=== PATIENT | male | born 1990 | race Two or more races ===

== ENCOUNTER 2017-10-12 19:43 | Inpatient (IN) | payer OTHER ==
[2017-10-12 20:14] VITALS: BMI 23.2
--- NOTE | 2017-10-13 00:47 | HP ---
CIWA Score - CIWA Score Nausea/Vomitin Muscle Tremors: 1-None Visible, but [place] Anxiety: 5 Agitation: 5 Paroxysmal Sweats: 3 Orientation: 0-Oriented Tacttile Disturbances: 0-None Auditory Disturbances: 0-None Visual Disturbances: 2-Mild Sensitivity Headache: 0-None Present CIWA-Ar Total Score: 19 Admission ROS S - HPI Chief Complaint: C/O WITHDRAWAL SX'S. SEEKING DETOX FROM ALCOHOL Allergies/Adverse Reactions: Allergies Allergy/AdvReac Type Severity Reaction Status Date / Time Penicillins Allergy Intermediate Hives Verified 10/12/17 23:45 History of Present Illness: 27 Y.O. MALE WITH ALCOHOLISM HERE FOR DETOX. CLIENT LAST HERE FROM 04/23/2015-. HE DENIES DETOX SINCE. SELF REFERRED AFTER HIS FAMILY KICKED HIM OUT UNTIL HE SEEK TXMENT. REPORTS LONGEST CLEAN TIME 1 YEARS. RELPASING 1 YEAR AGO. DENIES SEIZURE D/O C.P, AVH, PAST/PRESENT SI/HI. REPORTS HX/O BLACK OUTS AND SOB DUE TO NICOTINE DEP. PMHX: DENIES PSYCH: DEPRESSION Exam Limitations: No Limitations - Ebola screening Have you traveled outside of the country in the last 21 days: No Have you had contact with anyone from an Ebola affected area: No Have you been sick,other than usual withdrawal symptoms: No Do you have a fever: No - Review of Systems Constitutional: Loss of Appetite, Malaise, Changes in sleep, Unintentional Wgt. Loss EENT: reports: No Symptoms Reported Respiratory: reports: No Symptoms reported Cardiac: reports: No Symptoms Reported GI: reports: Poor Appetite, Poor Fluid Intake, Abdominal cramping : reports: No Symptoms Reported Musculoskeletal: reports: Back Pain Integumentary: reports: Rash ( R LEG X 2WEEKS) Neuro: reports: No Symptoms reported Endocrine: reports: No Symptoms Reported Hematology: reports: No Symptoms Reported Psychiatric: reports: Agitated, Depressed Other Systems: Reviewed and Negative Patient History - Patient Medical History Hx Anemia: No Hx Asthma: No Hx Chronic Obstructive Pulmonary Disease (COPD): No Hx Cancer: No Hx Cardiac Disorders: No Hx Congestive Heart Failure: No Hx Hypertension: No Hx Hypercholesterolemia: No Hx Pacemaker: No HX Cerebrovascular Accident: No Hx Seizures: No Hx Dementia: No Hx Diabetes: No Hx Gastrointestinal Disorders: No Hx Liver Disease: No Hx Genitourinary Disorders: No Hx Sexually Transmitted Disorders: No Hx Renal Disease (ESRD): No Hx Thyroid Disease: No Hx Human Immunodeficiency Virus (HIV): No Hx Hepatitis C: No Hx Depression: Yes Hx Suicide Attempt: No Hx Bipolar Disorder: No Hx Schizophrenia: No - Patient Surgical History Past Surgical History: No Hx Neurologic Surgery: No Hx Cataract Extraction: No Hx Cardiac Surgery: No Hx Lung Surgery: No Hx Breast Surgery: No Hx Breast Biopsy: No Hx Abdominal Surgery: No Hx Appendectomy: No Hx Cholecystectomy: No Hx Genitourinary Surgery: No Hx Orthopedic Surgery: No Anesthesia Reaction: No - PPD History Previous Implant?: Yes Documented Results: Positive w/o proof PPD to be Administered?: No - Smoking Cessation Smoking history: Current every day smoker Have you smoked in the past 12 months: Yes Aproximately how many cigarettes per day: 20 Cigars Per Day: 0 Hx Chewing Tobacco Use: No Initiated information on smoking cessation: Yes 'Breaking Loose' booklet given: 10/13/17 - Substance & Tx. History Hx Alcohol Use: Yes Hx Substance Use: Yes Substance Use Type: Alcohol, Marijuana Hx Substance Use Treatment: Yes ([facility]) - Substances Abused Alcohol Route: Oral Frequency: Daily Amount used: Beer 40 oz, Vodka 1/2 pint Age of first use: 15 Date of Last Use: 10/12/17 Marijuana/Hashish Route: Smoking Frequency: Daily Amount used: $20 Age of first use: 15 Date of Last Use: 10/12/17 Family Disease History - Family Disease History Family History: Denies Admission Physical Exam S - Vital Signs Vital Signs: Vital Signs - 24 hr 10/12/17 20:13 Temperature 99.2 F Pulse Rate 75 Respiratory 20 Rate Blood Pressure 140/83 - Physical General Appearance: Yes: Appropriately Dressed, Mild Distress, Thin, Irritable, Sweating, Other (MALODUROUS) HEENTM: Yes: EOMI, Normocephalic, Normal Voice, VAL[place], Pharynx Normal Respiratory: Yes: Chest Non-Tender, Lungs Clear, Normal Breath Sounds, No Respiratory Distress, No Accessory Muscle Use Neck: Yes: No masses,lesions,Nodules, Supple, Trachea in good position Breast: Yes: Breast Exam Deferred Cardiology: Yes: Regular Rhythm, Regular Rate, S1, S2 Abdominal: Yes: Normal Bowel Sounds, Non Tender, Soft Genitourinary: Yes: Other (NO C/O) Back: Yes: Normal Inspection Musculoskeletal: Yes: full range of Motion, Gait Steady, Back pain (C/O) Extremities: Yes: Normal Capillary Refill, Normal Range of Motion, Non-Tender, Tremors (SLIGHTLY FELT) Neurological: Yes: certified prosthetist/orthotist II-XII NML intact, Fully Oriented, Alert, Depressed Affect Integumentary: Yes: Dry, Warm, Rash (RIGHT POSTERIOT THIGH DERMATITS) Lymphatic: Yes: Within Normal Limits - Diagnostic (1) History of positive PPD Current Visit: Yes Status: Chronic (2) At risk for dehydration due to poor fluid intake Current Visit: Yes Status: Acute (3) Substance-induced sleep disorder Current Visit: Yes Status: Chronic (4) Alcohol-induced mood disorder Current Visit: Yes Status: Chronic (5) Alcohol dependence with uncomplicated withdrawal Current Visit: Yes Status: Acute (6) Cannabis dependence Current Visit: Yes Status: Chronic (7) Depression Current Visit: Yes Status: Chronic Qualifiers: Major depression episode severity: unspecified (8) Nicotine dependence Current Visit: Yes Status: Chronic Qualifiers: Nicotine product type: cigarettes Substance use status: uncomplicated Qualified Code(s): F17.210 - Nicotine dependence, cigarettes, uncomplicated Cleared for Admission [facility] - Detox or Rehab [facility] Level of Care: Medically Managed Detox Regimen/Protocol: Librium Claeared for Rehab Admission: No S Breath Alcohol Content Breath Alcohol Content: 0.100 Urine Drug Screen - Results Drug Screen Negative: No Urine Drug Screen Results: THC-Marijuana
[2017-10-13] MEDS ORDERED: P-EPHED 60MG/TRIPROLIDI 2.5MG TABLET PO PRN (01:00)
[2017-10-13] MEDS ORDERED: MAGNESIUM HYDROX 2400MG/30ML ORAL SUSPENSION 30 ML CUP PO PRN (01:00)
[2017-10-13] MEDS ORDERED: ACETAMINOPHEN 325 MG TABLET (FP) PO PRN (01:00)
[2017-10-13] MEDS ORDERED: MAG HYDROX/AL HYDROX/SIMETH 30 ML UNIT-DOSE CUP PO PRN (01:00)
[2017-10-13] MEDS ORDERED: guaiFENesin/D-METHORPHAN HB 10 ML UNIT-DOSE CUPS PO PRN (01:00)
[2017-10-13] MEDS ORDERED: NICOTINE POLACRILEX 2 MG GUM BUC PRN (01:00)
[2017-10-13] MEDS ORDERED: LOPERAMIDE HCL 2 MG CAPSULE PO PRN (01:00)
[2017-10-13] MEDS ORDERED: MENTHOL/PHENOL 1 EACH UD MM PRN (01:00)
[2017-10-13] MEDS ORDERED: MAGNESIUM CITRATE 300 ML BOTTLE PO PRN (01:00)
[2017-10-13] MEDS ORDERED: IBUPROFEN 400 MG TABLET (FP) PO PRN (01:00)
[2017-10-13] MEDS: chlordiazePOXIDE HCL 25 MG CAPSULE PO PRN (02:40)
[2017-10-13] MEDS: hydrOXYzine PAMOATE 50 MG CAPSULE (FP) PO PRN (02:41)
[2017-10-13] MEDS: chlordiazePOXIDE HCL 25 MG CAPSULE PO SCH ×4 (06:05→22:44)
[2017-10-13] MEDS: PRENATAL VITAMINS W/ FOLIC ACID TABLET (FP) PO SCH (10:21)
[2017-10-13] MEDS: NICOTINE 21 MG/24 HOURS TOPICAL PATCH TD SCH (10:22)
--- NOTE | 2017-10-13 12:33 | EKG ---
Test Reason : Blood Pressure : / mmHG Vent. Rate : 073 BPM Atrial Rate : 073 BPM P-R Int : 136 ms QRS Dur : 104 ms QT Int : 404 ms P-R-T Axes : 040 062 038 degrees QTc Int : 445 ms NORMAL SINUS RHYTHM RSR' OR QR PATTERN IN V1 SUGGESTS RIGHT VENTRICULAR CONDUCTION DELAY VOLTAGE CRITERIA FOR LEFT VENTRICULAR HYPERTROPHY ABNORMAL ECG NO PREVIOUS ECGS AVAILABLE Confirmed by JILLIAN BARRETO, YOAN ([id number]) on 10/13/2017 12:32:36 PM Referred By: Confirmed By:YOAN WALSH MD
--- NOTE | 2017-10-13 13:27 | PN ---
S CIWA - CIWA Score Nausea/Vomitin-No Nausea/No Vomiting Muscle Tremors: 4-Moderate,w/Arms Extend Anxiety: 4-Mod. Anxious/Guarded Agitation: 4-Moderately Restless Paroxysmal Sweats: 1-Minimal Palms Moist Orientation: 0-Oriented Tacttile Disturbances: 0-None Auditory Disturbances: 0-None Visual Disturbances: 0-None Headache: 0-None Present CIWA-Ar Total Score: 13 B[facility] Progress Note (SOAP) Subjective: ANXIETY,SWEATS,FATIGUE. Objective: 10/13/17 13:25 Vital Signs 10/13/17 10/13/17 06:26 09:12 Temperature 97.0 F L 97.5 F L Pulse Rate 76 61 Respiratory 18 18 Rate Blood Pressure 110/61 125/65 LABS PENDING Assessment: 10/13/17 13:25 WITHDRAWAL SX Plan: CONTINUE DETOX
--- NOTE | 2017-10-13 14:37 | CONSULT ---
[facility] Psychiatric Consult - Data Date of interview: 10/13/17 Admission source: [facility] Identifying data: Readmission to [facility] for this 27 y/o male from [place] ancestry, self-referred for detoxification treatment on ( alcohol + cannabis dependence).additional self-report of occasional use of ecstasy and cocaine.Patient is single without dependents,homeless,unemployed and supported on food stamps. Substance Abuse History: Confirmed by the patient in this interview.Details in current [facility] report : Smoking history: Current every day smoker. Have you smoked in the past 12 months: Yes. Aproximately how many cigarettes per day: 20. Cigars Per Day: 0. Hx Chewing Tobacco Use: No. Initiated information on smoking cessation: Yes. 'Breaking Loose' booklet given: 10/13/17. - Substance & Tx. History. Hx Alcohol Use: Yes. Hx Substance Use: Yes. Substance Use Type : Alcohol, Marijuana. Hx Substance Use Treatment: Yes ([facility]). - Substances Abused. Alcohol. Route: Oral. Frequency: Daily. Amount used: Beer 40 oz, Vodka 1/2 pint. Age of first use: 15. Date of Last Use: 10/12/17. Marijuana/Hashish. Route: Smoking. Frequency: Daily. Amount used: $20. Age of first use: 15. Date of Last Use: 10/12/17 Medical History: Patient endorses good general health. Psychiatric History: Patient denies history of psychiatric hospitalizations.Brief treatment with remeron in 2015 to address depression and insomnia.Duration : less than six months.No OPD care since 2014.Mr Alvares denies history of suicide attempts. Physical/Sexual Abuse/Trauma History: Patient denies. Additional Comment: Urine Drug Screen Results: THC-Marijuana.Noted. Mental Status Exam - Mental Status Exam Alert and Oriented to: Time, Place, Person Cognitive Function: Good Patient Appearance: Well Groomed Mood: Hopeful, Euthymic Affect: Appropriate, Normal Range Patient Behavior: Fatigued, Appropriate, Cooperative Speech Pattern: Clear Voice Loudness: Normal Thought Process: Intact, Goal Oriented Thought Disorder: Not Present Hallucinations: Denies Suicidal Ideation: Denies Homicidal Ideation: Denies Insight/Judgement: Poor Sleep: Well Appetite: Good Muscle strength/Tone: Normal Gait/Station: Normal Psychiatric Findings - Problem List ([place] 1, 2,3) (1) Alcohol dependence with uncomplicated withdrawal Current Visit: Yes Status: Acute (2) Cannabis dependence Current Visit: Yes Status: Acute (3) Nicotine dependence Current Visit: Yes Status: Chronic Qualifiers: Nicotine product type: cigarettes Substance use status: uncomplicated Qualified Code(s): F17.210 - Nicotine dependence, cigarettes, uncomplicated - Initial Treatment Plan Initial Treatment Plan: Psychoeducation.Sleep hygiene.Detoxification.Observation.
[2017-10-13] MEDS: THIAMINE HCL 100 MG TABLET (FP) PO SCH (22:44)
[2017-10-14] MEDS: chlordiazePOXIDE HCL 25 MG CAPSULE PO SCH ×4 (06:27→22:33)
[2017-10-14] MEDS: NICOTINE 21 MG/24 HOURS TOPICAL PATCH TD SCH (10:50)
[2017-10-14] MEDS: PRENATAL VITAMINS W/ FOLIC ACID TABLET (FP) PO SCH (10:50)
[2017-10-14 10:52] LABS: ALBUMIN 3.2 g/dl (3.4-5.0); ANION GAP 7 MMOL/L (8-16); BLOOD UREA NITROGEN 9 mg/dL (7-18); CALCIUM 8.9 mg/dL (8.5-10.1); CHLORIDE 104 mmol/L (98-107); CO2 30 mmol/L (21-32); GLUCOSE,RANDOM 85 mg/dL (74-106); POTASSIUM 4.2 mmol/L (3.5-5.1); SGOT/AST 19 U/L (15-37); SGPT/ALT 22 U/L (12-78); SODIUM 141 mmol/L (136-145)
[2017-10-14 10:53] LABS: ALK PHOS 94 U/L (45-117); BILIRUBIN,TOTAL 0.7 mg/dL (0.2-1.0); CREATININE 0.8 mg/dL (0.7-1.3); TOT PROT 6.2 g/dl (6.4-8.2)
[2017-10-14 11:42] LABS: HEMATOCRIT 44.9 % (35.4-49); MCH 31.6 pg (25.7-33.7); MCHC 33.4 g/dl (32.0-35.9); MEAN CELL VOLUME 94.8 fl (80-96); MEAN PLT VOLUME 8.7 fl (7.5-11.1); PLATELET COUNT 244 K/MM3 (134-434); RBC 4.74 M/mm3 (4.00-5.60); RDW 13.8 % (11.9-15.9); WHITE BLOOD COUNT 3.9 K/mm3 (4.0-10.0)
--- NOTE | 2017-10-14 13:48 | EKG ---
Test Reason : Blood Pressure : / mmHG Vent. Rate : 053 BPM Atrial Rate : 053 BPM P-R Int : 152 ms QRS Dur : 102 ms QT Int : 432 ms P-R-T Axes : 050 058 037 degrees QTc Int : 405 ms SINUS BRADYCARDIA WITH SINUS ARRHYTHMIA VOLTAGE CRITERIA FOR LEFT VENTRICULAR HYPERTROPHY ABNORMAL ECG WHEN COMPARED WITH ECG OF 13-OCT-2017 02:12, NO SIGNIFICANT CHANGE WAS FOUND Confirmed by LILA BARRETO, DOMINIQUE ([id number]) on 10/14/2017 1:48:06 PM Referred By: Confirmed By:DOMINIQUE SHARP MD
[2017-10-14] MEDS: chlordiazePOXIDE HCL 25 MG CAPSULE PO PRN (14:10)
--- NOTE | 2017-10-14 14:16 | PN ---
S CIWA - CIWA Score Nausea/Vomitin-No Nausea/No Vomiting Muscle Tremors: 4-Moderate,w/Arms Extend Anxiety: 4-Mod. Anxious/Guarded Agitation: 4-Moderately Restless Paroxysmal Sweats: 1-Minimal Palms Moist Orientation: 0-Oriented Tacttile Disturbances: 0-None Auditory Disturbances: 0-None Visual Disturbances: 0-None Headache: 0-None Present CIWA-Ar Total Score: 13 BHS Progress Note (SOAP) Subjective: ANXIETY,SWEATS,FATIGUE. Objective: 10/14/17 14:15 Vital Signs 10/14/17 10/14/17 06:30 10:46 Temperature 96.9 F L 98.0 F Pulse Rate 48 L 68 Respiratory 18 18 Rate Blood Pressure 125/74 119/64 Laboratory Tests 10/14/17 10/14/17 06:00 06:00 WBC 3.9 L RBC 4.74 Hgb 15.0 Hct 44.9 MCV 94.8 MCH 31.6 MCHC 33.4 RDW 13.8 Plt Count 244 MPV 8.7 Sodium 141 Potassium 4.2 Chloride 104 Carbon Dioxide 30 D Anion Gap 7 L BUN 9 Creatinine 0.8 Creat Clearance w eGFR > 60 Random Glucose 85 Calcium 8.9 Total Bilirubin 0.7 AST 19 D ALT 22 Alkaline Phosphatase 94 Total Protein 6.2 L Albumin 3.2 L Assessment: 10/14/17 14:16 WITHDRAWAL SX Plan: CONTINUE DETOX
[2017-10-14] MEDS: MELATONIN 5 MG TABLETS PO PRN (22:33)
[2017-10-14] MEDS: THIAMINE HCL 100 MG TABLET (FP) PO SCH (22:33)
[2017-10-15] MEDS: hydrOXYzine PAMOATE 50 MG CAPSULE (FP) PO PRN (00:25)
[2017-10-15] MEDS: chlordiazePOXIDE 5 MG CAPSULE PO SCH ×4 (06:11→22:41)
[2017-10-15] MEDS: PRENATAL VITAMINS W/ FOLIC ACID TABLET (FP) PO SCH (10:30)
[2017-10-15] MEDS: NICOTINE 21 MG/24 HOURS TOPICAL PATCH TD SCH (10:31)
[2017-10-15 13:06] LABS: URINE APPEARANCE CLEAR; URINE BILIRUBIN NEGATIVE (<2.0 mg/dL); URINE COLOR LTYELLOW; URINE GLUCOSE (UA) NEGATIVE (NEGATIVE); URINE KETONE NEGATIVE (NEGATIVE); URINE LEUK ESTERASE NEGATIVE (NEGATIVE); URINE NITRITE NEGATIVE (NEGATIVE); URINE PROTEIN NEGATIVE (NEGATIVE); URINE UROBILINOGEN NEGATIVE mg/dL (0.2-1.0)
--- NOTE | 2017-10-15 15:42 | PN ---
[facility] Progress Note (SOAP) Subjective: ANXIETY,SWEATS, IRRITABILITY,RESTLESSNESS,AGITATION,ANGRY BUT REPORTS DROWSINESS FROM LIBRIUM. PT STATING I"M DEPRESSED, I AM TIRED OF BEING HERE DOING NOTHING. " ASKED PT WHO REFERRED HIM TO TREATMENT IF HE DID NOT WANT TO BE HERE. PT STATES IT'S MY MEDICAL NURSE'. PT WAS ENCOURAGED TO DO A F/U WITH THE PSYCH MD AND THE COUNSELOR KVNG CHAPMAN TODAY TO START PLANNING FOR AFTERCARE UPON DISCHARGE. PT AGREED. Objective: 10/15/17 15:42 Vital Signs 10/15/17 10/15/17 09:18 13:58 Temperature 96 F L 96.7 F L Pulse Rate 68 59 L Respiratory 20 18 Rate Blood Pressure 123/73 100/53 Laboratory Tests 10/14/17 10/14/17 10/14/17 06:00 06:00 06:00 WBC 3.9 L RBC 4.74 Hgb 15.0 Hct 44.9 MCV 94.8 MCH 31.6 MCHC 33.4 RDW 13.8 Plt Count 244 MPV 8.7 Sodium 141 Potassium 4.2 Chloride 104 Carbon Dioxide 30 D Anion Gap 7 L BUN 9 Creatinine 0.8 Creat Clearance w eGFR > 60 Random Glucose 85 Calcium 8.9 Total Bilirubin 0.7 AST 19 D ALT 22 Alkaline Phosphatase 94 Total Protein 6.2 L Albumin 3.2 L Urine Color Urine Appearance Urine pH Ur Specific [place] Urine Protein Urine Glucose (UA) Urine Ketones Urine Blood Urine Nitrite Urine Bilirubin Urine Urobilinogen Ur Leukocyte Esterase RPR Titer Nonreactive 10/15/17 09:50 WBC RBC Hgb Hct MCV MCH MCHC RDW Plt Count MPV Sodium Potassium Chloride Carbon Dioxide Anion Gap BUN Creatinine Creat Clearance w eGFR Random Glucose Calcium Total Bilirubin AST ALT Alkaline Phosphatase Total Protein Albumin Urine Color Ltyellow Urine Appearance Clear Urine pH 7.0 Ur Specific [place] 1.012 Urine Protein Negative Urine Glucose (UA) Negative Urine Ketones Negative Urine Blood Negative Urine Nitrite Negative Urine Bilirubin Negative Urine Urobilinogen Negative Ur Leukocyte Esterase Negative RPR Titer Assessment: 10/15/17 15:42 WITHDRAWAL SX Plan: CONTINUE DETOX PT REFERRED TO [facility].
--- NOTE | 2017-10-15 18:36 | PN ---
[facility] Progress Note Note: Psychiatry Attending's note : Request for re-consult.Answered. Patient approached at bedside. Mr Alvares is found asleep. Resting comfortably. Consult deferred.
[2017-10-15] MEDS: THIAMINE HCL 100 MG TABLET (FP) PO SCH (22:41)
[2017-10-15] MEDS: MELATONIN 5 MG TABLETS PO PRN (22:42)
[2017-10-15 23:56] VITALS: BP 150/94; PULSE 72; TEMP 98
[2017-10-16] MEDS ORDERED: chlordiazePOXIDE HCL 10 MG CAPSULE PO SCH (05:00)
--- NOTE | 2017-10-16 13:15 | DS ---
[facility] Detox Discharge Summary Admission Date: 10/13/17 Discharge Date: 10/16/17 - History Present History: Alcohol Dependence Additional Comments: PT COMPLETED DETOX. Pertinent Past History: SEE DX BELOW - Physical Exam Results Vital Signs: Vital Signs Temperature 98.0 F 10/15/17 22:00 Pulse Rate 72 10/15/17 22:00 Respiratory Rate 18 10/16/17 03:30 Blood Pressure 150/94 10/15/17 22:00 O2 Sat by Pulse Oximetry (%) Pertinent Admission Physical Exam Findings: WITHDRAWAL SX Laboratory Tests 10/14/17 10/14/17 10/14/17 06:00 06:00 06:00 WBC 3.9 L RBC 4.74 Hgb 15.0 Hct 44.9 MCV 94.8 MCH 31.6 MCHC 33.4 RDW 13.8 Plt Count 244 MPV 8.7 Sodium 141 Potassium 4.2 Chloride 104 Carbon Dioxide 30 D Anion Gap 7 L BUN 9 Creatinine 0.8 Creat Clearance w eGFR > 60 Random Glucose 85 Calcium 8.9 Total Bilirubin 0.7 AST 19 D ALT 22 Alkaline Phosphatase 94 Total Protein 6.2 L Albumin 3.2 L Urine Color Urine Appearance Urine pH Ur Specific [place] Urine Protein Urine Glucose (UA) Urine Ketones Urine Blood Urine Nitrite Urine Bilirubin Urine Urobilinogen Ur Leukocyte Esterase RPR Titer Nonreactive 10/15/17 09:50 WBC RBC Hgb Hct MCV MCH MCHC RDW Plt Count MPV Sodium Potassium Chloride Carbon Dioxide Anion Gap BUN Creatinine Creat Clearance w eGFR Random Glucose Calcium Total Bilirubin AST ALT Alkaline Phosphatase Total Protein Albumin Urine Color Ltyellow Urine Appearance Clear Urine pH 7.0 Ur Specific [place] 1.012 Urine Protein Negative Urine Glucose (UA) Negative Urine Ketones Negative Urine Blood Negative Urine Nitrite Negative Urine Bilirubin Negative Urine Urobilinogen Negative Ur Leukocyte Esterase Negative RPR Titer - Treatment Hospital Course: Detox Protocol Followed, Detoxed Safely, Responded well, Discharged Condition Good, Rehab Referral Accepted - Medication Discharge Medications: Ambulatory Orders NK [No Known Home Medication] 04/23/15 - Diagnosis (1) Alcohol dependence with uncomplicated withdrawal Status: Acute (2) At risk for dehydration due to poor fluid intake Status: Acute (3) Nicotine dependence Status: Acute Qualifiers: Nicotine product type: cigarettes Substance use status: in withdrawal Qualified Code(s): F17.213 - Nicotine dependence, cigarettes, with withdrawal (4) Cannabis dependence Status: Acute - AMA Did Patient Leave Against Medical Advice: No
== END 2017-10-16 06:10 | disposition home or self-care (01) | DRG 775 ==
LOC: YASAS 19:43 → Y3N 10-13 01:24
PROC: HZ2ZZZZ Detoxification Services for Substance Abuse Treatment (ICD-10-PCS; principal; 2017-10-13)
DX: F10.230 Alcohol dependence with withdrawal, uncomplicated (principal); F12.20 Cannabis dependence, uncomplicated; F17.213 Nicotine dependence, cigarettes, with withdrawal; F10.24 Alcohol dependence with alcohol-induced mood disorder; F19.282 Other psychoactive substance dependence with psychoactive substance-induced sleep disorder; F32.9 Major depressive disorder, single episode, unspecified; R76.11 Nonspecific reaction to tuberculin skin test without active tuberculosis; Z91.89 Other specified personal risk factors, not elsewhere classified; Z88.0 Allergy status to penicillin
CPT/HCPCS: 36415; 71046-TC-FY; 80053; 81003; 85027; 86593; 93005; 93010